=== PATIENT | male | born 1995 | race Caucasian/White ===

== ENCOUNTER 2020-12-20 12:32 | Inpatient (IN) ==
--- NOTE | 2020-12-20 15:35 | XRay Report ---
XR chest 1V portable HISTORY: Shortness of breath. Covid positive. COMPARISON: None. FINDINGS: No pneumothorax. No pleural effusions. There are low lung volumes. The cardiac silhouette i s mildly enlarged. There are patchy airspace opacities within the left lower lung zone. IMPRESSION: 1. Patchy airspace opacities within the left lower lung zone. This likely represents a viral pneumoni a. 2. Mild enlargement of the cardiac silhouette. This could be accentuated by the low lung volumes. ACT 112: Negative or not required by law. Electronically signed by: Mark Naranjo M.D. 12/20/2020 3:34 PM
--- NOTE | 2020-12-20 16:23 | Emergency Department Note ---
History of Present Illness General Chief complaint: Shortness of Breath/Dyspnea Stated complaint: COVID POSITIVE,TROUBLE BREATHING,SOME CHEST PAIN Time Seen by Provider: 12/20/20 15:05 History of Present Illness 24-year-old male who presents to the emergency department for evaluation of difficulty breathing, chest pain and low oxygen level. The patient reports that he was diagnosed with COVID-19 a little over a week ago. His testing was performed and [place]. The patient reports that he was exposed to his stepdaughter who tested positive for COVID-19 one week before his diagnosis. The patient reports that over the past 2 days, his breathing has become more labored. His purchased a pulse oximeter this morning, and the patient found his O2 saturation level at 85%. He did not tried to measure his saturation with activity. The patient denies any pain at the time of my exam. Home Medications Medication Instructions Recorded Confirmed Type No Known Home Medications 12/20/20 12/20/20 History Allergies Allergy/AdvReac Type Severity Reaction Status Date / Time No Known Allergies Allergy Unverified 12/20/20 16:22 Past Med/Surg History Medical History No pertinent past medical history Surgical History No pertinent past surgical history Family History Other No family history of cardiac disease No family history of diabetes mellitus Social History Smoking Status: Former smoker Hx Alcohol Use: Yes Alcohol type: beer Alcohol Intake Frequency: Monthly or Less Hx Substance Use: No Preferred Language: [place] Hat Blocker Required: No Beliefs That Will Affect Care: None Current Living Situation: Spouse Other Information That Helps Us Care for You: No Feels Safe at Home: Yes Safety Concerns: Feels Safe At This Time Assistive Devices: Glasses Review of Systems 10 system review was performed and was negative except for pertinent positives and negatives as indicated in history of present illness Physical Exam Vital Signs Vital Signs - 24 hr 12/20/20 12:43 12/20/20 15:10 12/20/20 15:20 Temperature 37.5 C Temperature Source Temporal Artery Scan Pulse Rate 90 75 Pulse Rate [Left Finger] 76 Pulse Rate from SpO2 Sensor 75 Pulse Rhythm [Left Finger] Regular Pulse Strength [Left Finger] Normal Respiratory Rate 22 18 23 Respiratory Effort / Characteristics Non-Labored Non-Labored Respiratory Depth Normal Normal Respiratory Pattern Regular Blood Pressure 153/80 H Blood Pressure [Left Arm] 130/68 Blood Pressure Mean 104 Blood Pressure Mean [Left Arm] 88 Blood Pressure Position [Left Arm] Lying Pulse Oximetry 88 L 92 92 Oxygen Delivery Method Room Air Nasal Cannula Oxygen Flow Rate 4 Sepsis Recent Fever Within 48 Hours Yes Sepsis New/Unexplained Change in Mental Status No Sepsis Action Taken by Nursing No Action Required 12/20/20 15:30 12/20/20 16:00 12/20/20 16:30 Temperature Temperature Source Pulse Rate 81 76 76 Pulse Rate [Left Finger] Pulse Rate from SpO2 Sensor 81 76 Pulse Rhythm [Left Finger] Pulse Strength [Left Finger] Respiratory Rate 20 24 24 Respiratory Effort / Characteristics Respiratory Depth Respiratory Pattern Blood Pressure Blood Pressure [Left Arm] Blood Pressure Mean Blood Pressure Mean [Left Arm] Blood Pressure Position [Left Arm] Pulse Oximetry 92 92 Oxygen Delivery Method Oxygen Flow Rate Sepsis Recent Fever Within 48 Hours Sepsis New/Unexplained Change in Mental Status Sepsis Action Taken by Nursing 12/20/20 17:00 12/20/20 17:30 12/20/20 18:00 Temperature Temperature Source Pulse Rate 73 75 74 Pulse Rate [Left Finger] 75 Pulse Rate from SpO2 Sensor 72 75 76 Pulse Rhythm [Left Finger] Regular Pulse Strength [Left Finger] Normal Respiratory Rate 23 24 26 H Respiratory Effort / Characteristics Spontaneous Respiratory Depth Shallow Respiratory Pattern Regular Blood Pressure Blood Pressure [Left Arm] 111/61 Blood Pressure Mean Blood Pressure Mean [Left Arm] 77 Blood Pressure Position [Left Arm] Lying Pulse Oximetry 93 91 93 Oxygen Delivery Method Nasal Cannula Oxygen Flow Rate 4 Sepsis Recent Fever Within 48 Hours Sepsis New/Unexplained Change in Mental Status Sepsis Action Taken by Nursing 12/20/20 18:30 12/20/20 19:00 12/20/20 19:30 Temperature Temperature Source Pulse Rate 79 72 85 Pulse Rate [Left Finger] Pulse Rate from SpO2 Sensor 80 73 86 Pulse Rhythm [Left Finger] Pulse Strength [Left Finger] Respiratory Rate 30 H 23 19 Respiratory Effort / Characteristics Respiratory Depth Respiratory Pattern Blood Pressure 122/67 Blood Pressure [Left Arm] Blood Pressure Mean 85 Blood Pressure Mean [Left Arm] Blood Pressure Position [Left Arm] Pulse Oximetry 93 92 90 Oxygen Delivery Method Nasal Cannula Oxygen Flow Rate 2 Sepsis Recent Fever Within 48 Hours Sepsis New/Unexplained Change in Mental Status Sepsis Action Taken by Nursing 12/20/20 20:00 12/20/20 20:30 12/20/20 21:00 Temperature Temperature Source Pulse Rate 77 77 76 Pulse Rate [Left Finger] Pulse Rate from SpO2 Sensor 76 77 78 Pulse Rhythm [Left Finger] Pulse Strength [Left Finger] Respiratory Rate 32 H 23 27 H Respiratory Effort / Characteristics Respiratory Depth Respiratory Pattern Blood Pressure Blood Pressure [Left Arm] Blood Pressure Mean Blood Pressure Mean [Left Arm] Blood Pressure Position [Left Arm] Pulse Oximetry 92 90 90 Oxygen Delivery Method Nasal Cannula Nasal Cannula Nasal Cannula Oxygen Flow Rate 4 4 4 Sepsis Recent Fever Within 48 Hours Sepsis New/Unexplained Change in Mental Status Sepsis Action Taken by Nursing 12/20/20 21:30 12/20/20 23:24 Temperature 37.8 C H Temperature Source Oral Pulse Rate 76 Pulse Rate [Left Finger] 73 Pulse Rate from SpO2 Sensor 76 Pulse Rhythm [Left Finger] Pulse Strength [Left Finger] Respiratory Rate 29 H 22 Respiratory Effort / Characteristics Respiratory Depth Respiratory Pattern Blood Pressure Blood Pressure [Left Arm] 124/79 Blood Pressure Mean Blood Pressure Mean [Left Arm] 94 Blood Pressure Position [Left Arm] Lying Pulse Oximetry 90 92 Oxygen Delivery Method Nasal Cannula Nasal Cannula Oxygen Flow Rate 4 4 Sepsis Recent Fever Within 48 Hours Sepsis New/Unexplained Change in Mental Status Sepsis Action Taken by Nursing CONSTITUTIONAL: Healthy and well nourished. Patient does not appear in any acu te distress, nor does he appear toxic. HEENT: Normocephalic, atraumatic. Pupils equal, round and reactive. Ears and nares are clear. No subconjunctival hemorrhage or rhinorrhea. Examination the oropharynx shows minimal posterior pharyngeal erythema without tonsillar hypertrophy or exudates. NECK: Full active range of motion without discomfort. LYMPHATICS: No cervical chain adenopathy. RESPIRATORY: Patient has mild decrease of breath sounds within the left lung base, otherwise no wheezing, crackles, rhonchi or stridor. CARDIOVASCULAR: Regular rate and rhythm with no murmurs, rubs or gallops. GASTROINTESTINAL: Bowel sounds present in all quadrants. Soft and nontender to palpation. MUSCULOSKELETAL: Full range of motion of all joints without discomfort. INTEGUMENTARY: No rash or other significant dermatologic conditions noted. HEMATOLOGIC: No ecchymosis or petechiae. PSYCHIATRIC: Positive affect. NEUROLOGIC: No focal neurologic deficits noted. Course Course Patient history and physical exam were performed. Nurses notes were reviewed. Vital signs were reviewed, showing an O2 saturation of 88% on room air, and elevated blood pressure 153/80. The patient is afebrile with a temperature of 37.5 C, and heart rate of 90. Given the high suspicion that the patient would require admission, I did recommend checking additional baseline labs and performing an ECG and chest x-ray. The patient was in agreement. IV access was established, and labs were drawn. Review of labs shows a mild leukopenia with an elevated sed rate and CRP. The patient is also mildly hyponatremic, hyperglycemic and with an elevated AST of 62. Urinalysis shows 2+ proteinuria and trace ketonuria with 1+ hematuria. A confirmatory COVID-19 PCR test was performed and was positive. A portable chest x-ray shows a left basilar pneumonia. An ECG was performed and was normal. Troponin was also normal. Findings were discussed with the patient. I did recommend hospitalist consultation. The case was further discussed with the [facility] hospitalist service, who has agreed to admission. Please see their dictation for further treatment and final disposition. Administered Medications Discontinued Medications Albuterol (Albuterol Hfa 8 Gm Inhaler) 2 puffs INH NOW ONE Stop: 12/20/20 19:36 Last Admin: 12/20/20 19:58 Dose: 2 puffs Documented by: [id number] Dexamethasone (Dexamethasone Sod Inj 4 Mg/Ml Vial) Confirm Administered Dose 8 mg .ROUTE .STK-MED ONE Stop: 12/20/20 19:22 Last Admin: 12/20/20 19:25 Dose: Not Given Documented by: [id number] Dexamethasone 6 mg/ Syringe 1.5 mls @ 1 mls/min IV NOW ONE Stop: 12/20/20 18:46 Last Admin: 12/20/20 19:24 Dose: 1 mls/min Documented by: [id number] Remdesivir 200 mg/ Sodium (Chloride) 250 mls @ 125 mls/hr IV ONE STA; Protocol Stop: 12/20/20 23:00 Last Admin: 12/20/20 21:47 Dose: 125 mls/hr Documented by: [id number] Medical Decision Making Medical Records Attestation: I reviewed the patient's medical records. Home Medications Current Medication List: was personally reviewed by ca Laboratory Data Attestation: I reviewed the patient's lab results. Result diagrams: 12/20/20 Unknown 12/20/20 Unknown Lab Results 12/20/20 12/20/20 12/20/20 Range/Units 18:24 18:24 19:20 WBC (4.8-10.8) K/uL RBC (4.7-6.1) M/uL Hgb (14.0-18.0) g/dL Hct (42-52) % MCV (80-100) fL MCH (25-34) pg MCHC (32-36) g/dL RDW Std Deviation (36.4-46.3) fL RDW Coeff of Donna (11.5-14.5) % Plt Count (130-400) K/uL MPV (7.4-10.4) fL Immature Gran % (Auto) % Neut % (Auto) % Lymph % (Auto) % [place] % (Auto) % Eos % (Auto) % Baso % (Auto) % Neut # (Auto) (1.4-6.5) K/uL Lymph # (Auto) (1.2-3.4) K/uL [place] # (Auto) (0.11-0.59) K/uL Eos # (Auto) (0-0.5) K/uL Baso # (Auto) (0-0.2) K/uL Immature Gran # (Auto) (0.00-0.02) K/uL ESR (0-15) mm/hr Sodium (136-145) mmol/L Potassium (3.5-5.1) mmol/L Chloride (98-107) mmol/L Carbon Dioxide (21-32) mmol/L Anion Gap (3-11) BUN (7-18) mg/dl Creatinine (0.6-1.4) mg/dl Est Cr Clr Drug Dosing ml/min Est GFR ( Amer) ml/min Est GFR (Non-Af Amer) ml/min BUN/Creatinine Ratio (10-20) Glucose (70-99) mg/dl Calcium (8.5-10.1) mg/dl Magnesium (1.8-2.4) mg/dl Total Bilirubin (0.2-1) mg/dl AST (15-37) U/L ALT (12-78) U/L Alkaline Phosphatase (45-117) U/L Troponin I (0-0.045) ng/ml C-Reactive Protein (0-0.29) mg/dl Total Protein (6.4-8.2) gm/dl Albumin (3.4-5.0) gm/dl Globulin (2.5-4.0) gm/dl Albumin/Globulin Ratio (0.9-2) Urine Color Dark Yellow Urine Appearance Clear (Clear) Urine pH 5.5 (4.5-7.5) Ur Specific [place] 1.027 (1.000-1.030) Urine Protein 2+ H (Negative) Urine Glucose (UA) Negative (Negative) Urine Ketones Trace H (Negative) Urine Blood 1+ H (Negative) Urine Nitrite Negative (Negative) Urine Bilirubin Negative (Negative) Urine Urobilinogen Negative (Negative) Ur Leukocyte Esterase Negative (Negative) Urine WBC (Auto) 1-5 (0-5) /hpf Urine RBC (Auto) 5-10 H (0-4) /hpf U Hyaline Cast (Auto) 1-5 (0-5) /lpf U Epithel Cells (Auto) 20-30 H (0-5) /lpf Urine Bacteria (Auto) Negative (Negative) COVID-19 Eval Order Covid19 at [facility] SARS-CoV-2 (PCR) POSITIVE A* (Negative) 12/20/20 12/20/20 12/20/20 Range/Units Unknown Unknown Unknown WBC 3.02 L (4.8-10.8) K/uL RBC 5.65 (4.7-6.1) M/uL Hgb 16.1 (14.0-18.0) g/dL Hct 47.2 (42-52) % MCV 83.5 (80-100) fL MCH 28.5 (25-34) pg MCHC 34.1 (32-36) g/dL RDW Std Deviation 42.5 (36.4-46.3) fL RDW Coeff of Donna 13.9 (11.5-14.5) % Plt Count 192 (130-400) K/uL MPV 11.0 H (7.4-10.4) fL Immature Gran % (Auto) 0.3 % Neut % (Auto) 70.9 % Lymph % (Auto) 22.5 % [place] % (Auto) 6.0 % Eos % (Auto) 0.0 % Baso % (Auto) 0.3 % Neut # (Auto) 2.14 (1.4-6.5) K/uL Lymph # (Auto) 0.68 L (1.2-3.4) K/uL [place] # (Auto) 0.18 (0.11-0.59) K/uL Eos # (Auto) 0.00 (0-0.5) K/uL Baso # (Auto) 0.01 (0-0.2) K/uL Immature Gran # (Auto) 0.01 (0.00-0.02) K/uL ESR 19 H (0-15) mm/hr Sodium 135 L (136-145) mmol/L Potassium 3.9 (3.5-5.1) mmol/L Chloride 106 (98-107) mmol/L Carbon Dioxide 21 (21-32) mmol/L Anion Gap 8.0 (3-11) BUN 13 (7-18) mg/dl Creatinine 1.10 (0.6-1.4) mg/dl Est Cr Clr Drug Dosing 170.1 ml/min Est GFR ( Amer) 106.8 ml/min Est GFR (Non-Af Amer) 92.2 ml/min BUN/Creatinine Ratio 12.1 (10-20) Glucose 105 H (70-99) mg/dl Calcium 8.7 (8.5-10.1) mg/dl Magnesium 2.0 (1.8-2.4) mg/dl Total Bilirubin 0.4 (0.2-1) mg/dl AST 62 H (15-37) U/L ALT 62 (12-78) U/L Alkaline Phosphatase 55 (45-117) U/L Troponin I < 0.015 (0-0.045) ng/ml C-Reactive Protein 0.81 H (0-0.29) mg/dl Total Protein 7.7 (6.4-8.2) gm/dl Albumin 3.5 (3.4-5.0) gm/dl Globulin 4.2 H (2.5-4.0) gm/dl Albumin/Globulin Ratio 0.8 L (0.9-2) Urine Color Urine Appearance (Clear) Urine pH (4.5-7.5) Ur Specific [place] (1.000-1.030) Urine Protein (Negative) Urine Glucose (UA) (Negative) Urine Ketones (Negative) Urine Blood (Negative) Urine Nitrite (Negative) Urine Bilirubin (Negative) Urine Urobilinogen (Negative) Ur Leukocyte Esterase (Negative) Urine WBC (Auto) (0-5) /hpf Urine RBC (Auto) (0-4) /hpf U Hyaline Cast (Auto) (0-5) /lpf U Epithel Cells (Auto) (0-5) /lpf Urine Bacteria (Auto) (Negative) COVID-19 Eval Order SARS-CoV-2 (PCR) (Negative) Imaging Data Attestation: I personally reviewed and interpreted this imaging study as follows: My Impression: My interpretation of reportable chest x-ray shows airspace opacities within the left lower lung base. No pneumothorax noted. Radiologist report was also reviewed. Radiologist's Impression: Chest X-Ray 12/20/20 15:08 XR chest 1V portable HISTORY: Shortness of breath. Covid positive. COMPARISON: None. FINDINGS: No pneumothorax. No pleural effusions. There are low lung volumes. The cardiac silhouette is mildly enlarged. There are patchy airspace opacities within the left lower lung zone. IMPRESSION: 1. Patchy airspace opacities within the left lower lung zone. This likely represents a viral pneumonia. 2. Mild enlargement of the cardiac silhouette. This could be accentuated by the low lung volumes. ACT 112: Negative or not required by law. Electronically signed by: Mark Naranjo M.D. 12/20/2020 3:34 PM ECG Data Attestation: I personally reviewed and interpreted this ECG as follows: Indication: + SOB/dyspnea and + other (Positive COVID-19 infection) Rate (beats per minute): 79 Rhythm: + normal sinus ECG Intervals/blocks: + Normal QRS, + Normal QT and + Normal [place] ECG [place]: + Normal ECG ST segments: + Normal ST segments Comparison ECG Date: no prior available Blood Pressure Blood Pressure Findings: Normal blood pressure MDM Narrative Patient presents the emergency department with complaint of shortness of breath and difficulty breathing. The patient is positive for COVID-19. His O2 saturation at home was 85%, and less than 90% upon triage. The patient was placed on O2 via nasal cannula at 4 L/min, and sustained his pulse ox around 92%. Additional work-up today is not suggestive of other acute cardiac etiology, having a normal ECG and troponin. Chest x-ray does show evidence for pneumonia. Given the patient's proxy, I do feel that he warrants admission. Impression & Plan Pneumonia due to COVID-19 virus, Acute respiratory failure with hypoxia Discharge Plan Visit Data Chief Complaint: Shortness of Breath/Dyspnea Stated Complaint: COVID POSITIVE,TROUBLE BREATHING,SOME CHEST PAIN ED Provider: Mack Cardenas ED Midlevel Provider: Andrés Kowalski Discharge Problem: Pneumonia due to COVID-19 virus, Acute respiratory failure with hypoxia Discharge Instructions Interventions: ED Discharge Assessment Last Done: 12/20/20 22:51 Forms Stand Alone Forms: [employer] Prescriptions Prescriptions: No Action No Known Home Medications RF: 0 Referrals Referrals: PCP,NO [Primary Care Provider] -
[2020-12-20 16:27] LABS: Basophils # (auto) 0.01 K/uL (0-0.2); Basophils % (auto) 0.3 %; Hematocrit (blood only) 47.2 % (42-52); Hemoglobin 16.1 g/dL (14.0-18.0); Immature Granulocytes # (auto) 0.01 K/uL (0.00-0.02); Immature Granulocytes % (auto) 0.3 %; Lymphocytes # (auto) 0.68 K/uL (1.2-3.4); Lymphocytes % (auto) 22.5 %; Mean Corpuscular Hemoglobin 28.5 pg (25-34); Mean Corpuscular Hgb Conc 34.1 g/dL (32-36); Mean Corpuscular Volume 83.5 fL (80-100); Monocytes # (auto) 0.18 K/uL (0.11-0.59); Neutrophils # (auto) 2.14 K/uL (1.4-6.5); Neutrophils % (auto) 70.9 %; Platelet Count 192 K/uL (130-400); RDW Coefficient of Variation 13.9 % (11.5-14.5); RDW Standard Deviation 42.5 fL (36.4-46.3); Red Blood Count 5.65 M/uL (4.7-6.1); White Blood Count 3.02 K/uL (4.8-10.8)
[2020-12-20 16:44] LABS: Alanine Aminotransferase 62 U/L (12-78); Albumin Level 3.5 gm/dl (3.4-5.0); Aspartate Aminotransferase 62 U/L (15-37); BUN Creatinine Ratio 12.1 (10-20); Blood Urea Nitrogen 13 mg/dl (7-18); C Reactive Protein 0.81 mg/dl (0-0.29); Calcium 8.7 mg/dl (8.5-10.1); Carbon Dioxide 21 mmol/L (21-32); Chloride 106 mmol/L (98-107); Creatinine Clr Calc Pharmacy 170.1 ml/min; Est GFR (African American) 106.8 ml/min; Est GFR (Non-African American) 92.2 ml/min; Glucose 105 mg/dl (70-99); Potassium 3.9 mmol/L (3.5-5.1); Sodium 135 mmol/L (136-145)
[2020-12-20 16:49] LABS: Albumin Globulin Ratio 0.8 (0.9-2); Alkaline Phosphatase 55 U/L (45-117); Bilirubin,Total 0.4 mg/dl (0.2-1); Globulin 4.2 gm/dl (2.5-4.0); Total Protein 7.7 gm/dl (6.4-8.2); Troponin I < 0.015 ng/ml (0-0.045)
--- NOTE | 2020-12-20 18:12 | History & Physical Report ---
Date of Service December 20, 2020 Assessment & Plan (1) Acute respiratory failure with hypoxia: (2) Pneumonia due to COVID-19 virus: Plan: This is a 24yo M with a PMH of no known past medical history who presents with hypoxia in the setting of covid 19 pneumonia. Patient first developed symptoms 10 days ago, covid + test 12/13 Hypoxic at 85% on room air, improved to 94% on 4L [place] O2 ESR 19, CRP 0.81 CXR with patchy airspace opacities within the left lower lung zone. This likely represents a viral pneumonia Given 6mg IV dexamethasone in ED Please see Dr. Jorgensen's addendum for plan. History of Present Illness Chief Complaint: dyspnea, covid + Primary Care Provider: NO PCP This is a 24yo M with a PMH of no known past medical history who presents with difficulty breathing in the setting of covid 19 infection. Patient first developed symptoms 10 days ago. Stepdaughter was diagnosed with covid a few wee ks ago. Patient first developed fever and chills followed by cough, pleuritic chest pain and difficulty breathing significantly worsened over the past 2 days. purchased pulse ox for patient to use at home and was found to have oxygen saturation of 85%. Came to the ED for further evaluation. Currently saturating at 94% on 4 L nasal cannula. Denies any current fever, chills, lightheadedness, chest pain, wheezing, nausea, vomiting, abdominal pain, dysuria, diarrhea constipation. Still has ability to taste and smell. Denies any change to appetite. Not taking any home medications. Did not receive COVID-19 vaccination. Allergies Allergy/AdvReac Type Severity Reaction Status Date / Time No Known Allergies Allergy Unverified 12/20/20 16:22 Home Medications Medication Instructions Recorded Confirmed Type No Known Home Medications 12/20/20 12/20/20 History Past Med/Surg History Medical History No pertinent past medical history Surgical History No pertinent past surgical history Family History Other No family history of cardiac disease No family history of diabetes mellitus Social History Smoking Status: Former smoker Hx Alcohol Use: Yes Alcohol type: beer Alcohol Intake Frequency: Monthly or Less Hx Substance Use: No Preferred Language: Bulgarian [employer] Required: No Beliefs That Will Affect Care: None Current Living Situation: Spouse Other Information That Helps Us Care for You: No Feels Safe at Home: Yes Safety Concerns: Feels Safe At This Time Assistive Devices: Glasses Review of Systems Review of Systems: At least ten systems reviewed and negative except as noted in the HPI. Physical Exam Physical Exam: Please see Dr. Jorgensen's addendum for physical exam. Results & Data [facility] Vital Signs (Past 12 Hours) Vital Signs Temp Pulse Pulse Resp BP BP Pulse Ox 12/20/20 17:00 75 20 111/61 93 12/20/20 15:10 76 18 130/68 92 12/20/20 12:43 37.5 C 90 22 153/80 H 88 L Laboratory Results Short CBC 12/20/20 Range/Units Unknown WBC 3.02 L (4.8-10.8) K/uL Hgb 16.1 (14.0-18.0) g/dL Hct 47.2 (42-52) % Plt Count 192 (130-400) K/uL BMP 12/20/20 Unknown Sodium 135 L Potassium 3.9 Chloride 106 Carbon Dioxide 21 BUN 13 Creatinine 1.10 Glucose 105 H Calcium 8.7 Cardiac Enzymes 12/20/20 Range/Units Unknown Troponin I < 0.015 (0-0.045) ng/ml Liver Function 12/20/20 Range/Units Unknown Total Bilirubin 0.4 (0.2-1) mg/dl AST 62 H (15-37) U/L ALT 62 (12-78) U/L Alkaline Phosphatase 55 (45-117) U/L Albumin 3.5 (3.4-5.0) gm/dl Diagnostic Findings Chest X-Ray 12/20/20 15:08 XR chest 1V portable HISTORY: Shortness of breath. Covid positive. COMPARISON: None. FINDINGS: No pneumothorax. No pleural effusions. There are low lung volumes. The cardiac silhouette is mildly enlarged. There are patchy airspace opacities within the left lower lung zone. IMPRESSION: 1. Patchy airspace opacities within the left lower lung zone. This likely represents a viral pneumonia. 2. Mild enlargement of the cardiac silhouette. This could be accentuated by the low lung volumes. ACT 112: Negative or not required by law. Electronically signed by: Mark Naranjo M.D. 12/20/2020 3:34 PM Supervising Physician Co-Signing Physician Notes IM ATTENDING : Patient seen and examined. History obtained from patient and records. Preceding documentation by Ms. Kimberly Medel PA-C reviewed. FINAL ASSESSMENT AND PLAN as follows : Acute hypoxemic respiratory failure Secondary to severe COVID-19 pneumonia NAFLD as per records Mood disorder, stable off maintenance medications Past tobacco abuse Medical telemetry Supplemental O2 Decadron and Remdesivir for severe COVID-19 pneumonia. (Patient was counseled regarding potential adverse effects from Remdesivir therapy and provided with patient education sheet.) Pulmonary consult if without improvement. DVT prophylaxis per Lovenox subcu Full code Text document was generated using [employer] voice recognition software. It may contain grammatical or spelling errors. Kindly contact undersigned for clarification of any documentation item in question.
[2020-12-20] MEDS ORDERED: dexAMETHasone 6 MG in SYRINGE 0 ML IV ONE (18:45)
[2020-12-20] MEDS ORDERED: DEXAMETHASONE SOD INJ 4 MG/ML VIAL ONE (19:21)
[2020-12-20] MEDS ORDERED: ALBUTEROL HFA 8 GM INHALER INH ONE (19:35)
[2020-12-20 20:16] LABS: Appearance Urine Clear (Clear); Bacteria Urine Automated Negative (Negative); Bilirubin Urine Negative (Negative); Blood Urine 1+ (Negative); Color Urine Dark Yellow; Epithelial Cell Urine Auto 20-30 /lpf (0-5); Glucose Urine UA Negative (Negative); Ketones Urine Trace (Negative); Leukocyte Esterase Urine Negative (Negative); Nitrite Urine Negative (Negative); Protein Urine 2+ (Negative); Specific Gravity Urine 1.027 (1.000-1.030); Urobilinogen Urine Negative (Negative); pH Urine 5.5 (4.5-7.5)
[2020-12-20] MEDS ORDERED: NSS + 20MEQ KCL 20 MEQ/1,000 ML BAG IV ONE (20:17)
[2020-12-20] MEDS ORDERED: REMDESIVIR 200 MG in SODIUM CHLORIDE 0.9% 210 ML IV STA (21:01)
[2020-12-20] MEDS ORDERED: ACETAMINOPHEN 325 MG TAB PO PRN (23:50)
[2020-12-20] MEDS ORDERED: PROMETHAZINE HCL 12.5 MG in SODIUM CHLORIDE 0.9% 50 ML IV PRN (23:50)
[2020-12-20] MEDS ORDERED: ALBUTEROL HFA 8 GM INHALER INH PRN (23:50)
[2020-12-21] MEDS: SODIUM CHLORIDE 0.9% 10ML FLUSH IV SCH ×2 (00:09→22:26)
[2020-12-21 07:51] LABS: Basophils # (auto) 0.01 K/uL (0-0.2); Basophils % (auto) 0.5 %; Hematocrit (blood only) 46.8 % (42-52); Hemoglobin 15.8 g/dL (14.0-18.0); Lymphocytes # (auto) 0.87 K/uL (1.2-3.4); Lymphocytes % (auto) 39.4 %; Mean Corpuscular Hemoglobin 28.5 pg (25-34); Mean Corpuscular Hgb Conc 33.8 g/dL (32-36); Mean Corpuscular Volume 84.3 fL (80-100); Mean Platelet Volume 11.5 fL (7.4-10.4); Monocytes # (auto) 0.27 K/uL (0.11-0.59); Monocytes % (auto) 12.2 %; Neutrophils # (auto) 1.06 K/uL (1.4-6.5); Neutrophils % (auto) 47.9 %; Platelet Count 188 K/uL (130-400); RDW Coefficient of Variation 13.8 % (11.5-14.5); RDW Standard Deviation 42.9 fL (36.4-46.3); Red Blood Count 5.55 M/uL (4.7-6.1); White Blood Count 2.21 K/uL (4.8-10.8)
[2020-12-21 08:24] LABS: Albumin Level 3.1 gm/dl (3.4-5.0); C Reactive Protein 0.99 mg/dl (0-0.29); Calcium 8.7 mg/dl (8.5-10.1); Creatinine Clr Calc Pharmacy 187.5 ml/min; Potassium 4.3 mmol/L (3.5-5.1)
[2020-12-21 08:27] LABS: Albumin Globulin Ratio 0.8 (0.9-2); Bilirubin,Total 0.5 mg/dl (0.2-1); Total Protein 7.1 gm/dl (6.4-8.2)
[2020-12-21] MEDS: dexAMETHasone 6 MG in SYRINGE 0 ML IV SCH (08:44)
[2020-12-21] MEDS ORDERED: dexAMETHasone 6 MG in SYRINGE 0 ML IV SCH (09:00)
[2020-12-21] MEDS: REMDESIVIR 100 MG in SODIUM CHLORIDE 0.9% 230 ML IV SCH (21:03)
--- NOTE | 2020-12-21 23:27 | Hospitalist Progress Note ---
Date of Service December 21, 2020 Assessment & Plan (1) Acute respiratory failure with hypoxia: (2) Pneumonia due to COVID-19 virus: Plan: This is a 24yo M with a PMH of no known past medical history who presents with worsening shortness of breath and hypoxia due to covid 19 pneumonia. Patient first developed symptoms 10 days ago and testing positive for covid 19 on 12/13 Did not receive the Covid 19 vaccine CXR showed patchy airspace opacities within the left lower lung zone. This likely represents a viral pneumonia Hypoxia on admission with oxygen level 85% on room air that improved to 94% on 4 L nasal cannula ESR 19, CRP 0.81on admission CXR with patchy airspace opacities within the left lower lung zone. This likely represents a viral pneumonia Continue IV dexamethasone 6 mg daily and remdesivir We will continue monitor liver enzymes while on IV remdesivir We will monitor and flat inflammatory markers such as ESR, C-reactive protein, ferritin Currently require 15 L oxygen supplement Continue guaifenesin and incentive spirometry Patient was advised to continue with proning Morbid obesity BMI 46.1 Counseling on weight loss with diet and exercise DVT prophylaxis will do Lovenox Full code Admission and Anticipated Discharge Date Admission Date: December 20, 2020 Subjective Patient was seen and examined for follow-up of shortness of breath due to COVID- 19 pneumonia Lying in bed with mild respiratory distress Currently on 15L oxygen supplement Denies any chest pain, palpitation, dizziness, and fever. Review of Systems Review of Systems: All systems reviewed & are unremarkable except as noted in Subjective Physical Exam Physical Exam: General- No acute distress, obese Head- atraumatic Eyes- PERRL, EOMI, ENT- oropharynx clear Neck- supple, no JVD Lungs- +diminished breath sounds Heart- regular rhythm; no murmur Abdomen- normal bowel sounds, soft, nontender Extremities- no calf tenderness Neuro- alert, oriented x 3; PERRL, EOMI; no facial palsy; no dysarthria Skin- warm & dry Results & Data Results & Data ([facility]) Vital Signs (Past 12 Hours) Vital Signs Temp Pulse Pulse Resp BP Pulse Ox 12/21/20 23:11 36.9 C 70 26 H 116/72 93 12/21/20 23:08 75 23 95 12/21/20 19:16 37.1 C 66 26 H 138/70 92 12/21/20 15:30 36.8 C 62 19 106/60 94 12/21/20 11:40 36.9 C 67 20 138/72 92
[2020-12-22] MEDS ORDERED: BENZONATATE 100 MG CAPSULE PO PRN (04:47)
[2020-12-22] MEDS ORDERED: BENZONATATE 100 MG CAPSULE ONE (04:55)
[2020-12-22] MEDS: guaiFENesin 600 MG TABCR PO SCH ×2 (08:32→21:19)
[2020-12-22] MEDS: dexAMETHasone 6 MG in SYRINGE 0 ML IV SCH (08:32)
[2020-12-22 09:36] LABS: C Reactive Protein 0.7 mg/dl (0-0.29); Ferritin 540.2 ng/ml (8-388)
--- NOTE | 2020-12-22 11:57 | Electrocardiogram Report ---
Test Reason : Blood Pressure : / mmHG Vent. Rate : 079 BPM Atrial Rate : 079 BPM P-R Int : 188 ms QRS Dur : 106 ms QT Int : 380 ms P-R-T Axes : 016 002 014 degrees QTc Int : 435 ms Normal sinus rhythm Normal ECG No previous ECGs available Confirmed by Rocky Mcneil ([id number]) on 12/22/2020 11:57:34 AM Referred By: REFERRED SELF Confirmed By:Rocky Mcneil
--- NOTE | 2020-12-22 19:18 | Hospitalist Progress Note ---
Date of Service December 22, 2020 Assessment & Plan (1) Acute respiratory failure with hypoxia: (2) Pneumonia due to COVID-19 virus: Plan: This is a 24yo M with a PMH of no known past medical history who presents with worsening shortness of breath and hypoxia due to covid 19 pneumonia. Patient first developed symptoms 10 days ago and testing positive for covid 19 on 12/13 Did not receive the Covid 19 vaccine CXR showed patchy airspace opacities within the left lower lung zone. This likely represents a viral pneumonia Hypoxia on admission with oxygen level 85% on room air that improved to 94% on 4 L nasal cannula ESR 19, CRP 0.81on admission CXR with patchy airspace opacities within the left lower lung zone. This likely represents a viral pneumonia Continue IV dexamethasone 6 mg daily and remdesivir We will continue monitor liver enzymes while on IV remdesivir We will monitor and flat inflammatory markers such as ESR, C-reactive protein, ferritin Currently require 15 L oxygen supplement Will consider to give low-dose Lasix 20 mg x 1 Continue guaifenesin and incentive spirometry Patient was advised to continue with proning Morbid obesity BMI 46.1 Counseling on weight loss with diet and exercise DVT prophylaxis will do Lovenox Full code Admission and Anticipated Discharge Date Admission Date: December 20, 2020 Subjective Patient was seen and examined for follow-up of shortness of breath due to COVID- 19 pneumonia Lying in bed with no acute respiratory distress Continue requiring 15L oxygen supplement Denies any chest pain, palpitation, dizziness, and fever. Review of Systems Review of Systems: All systems reviewed & are unremarkable except as noted in Subjective Physical Exam Physical Exam: General- No acute distress, obese Head- atraumatic Eyes- PERRL, EOMI, ENT- oropharynx clear Neck- supple, no JVD Lungs- +diminished breath sounds Heart- regular rhythm; no murmur Abdomen- normal bowel sounds, soft, nontender Extremities- no calf tenderness Neuro- alert, oriented x 3; PERRL, EOMI; no facial palsy; no dysarthria Skin- warm & dry Results & Data Results & Data ([facility]) Vital Signs (Past 12 Hours) Vital Signs Temp Pulse Pulse Resp BP Pulse Ox 12/22/20 19:05 36.9 C 73 20 124/72 93 12/22/20 16:00 73 12/22/20 15:44 36.7 C 71 18 118/71 91 12/22/20 10:19 95 12/22/20 10:10 37.2 C 71 18 133/70 88 L 12/22/20 08:00 73 12/22/20 07:21 36.8 C 77 18 155/82 H 90
[2020-12-22] MEDS ORDERED: MELATONIN 3 MG TAB PO PRN (20:53)
[2020-12-22] MEDS: REMDESIVIR 100 MG in SODIUM CHLORIDE 0.9% 230 ML IV SCH (21:18)
[2020-12-22] MEDS: SODIUM CHLORIDE 0.9% 10ML FLUSH IV SCH (22:25)
[2020-12-23 08:36] LABS: Albumin Globulin Ratio 0.8 (0.9-2); BUN Creatinine Ratio 14.5 (10-20); Bilirubin,Total 0.7 mg/dl (0.2-1); C Reactive Protein 1.45 mg/dl (0-0.29); Calcium 8.1 mg/dl (8.5-10.1); Creatinine Clr Calc Pharmacy 199.3 ml/min; Est GFR (African American) 126.6 ml/min; Est GFR (Non-African American) 109.3 ml/min; Ferritin 568.5 ng/ml (8-388); Globulin 3.9 gm/dl (2.5-4.0); Potassium 3.5 mmol/L (3.5-5.1); Total Protein 6.9 gm/dl (6.4-8.2)
[2020-12-23] MEDS: guaiFENesin 600 MG TABCR PO SCH ×2 (08:41→21:29)
[2020-12-23] MEDS: ENOXAPARIN INJ 40 MG/0.4 ML SYR SQ SCH (08:41)
[2020-12-23] MEDS: dexAMETHasone 6 MG in SYRINGE 0 ML IV SCH (08:41)
[2020-12-23] MEDS ORDERED: POTASSIUM CHLORIDE CRTAB 20 MEQ TABCR PO STA (09:28)
[2020-12-23] MEDS ORDERED: FUROSEMIDE 20 MG in SYRINGE 0 ML IV ONE (09:28)
[2020-12-23] MEDS ORDERED: FUROSEMIDE 40 MG/4 ML VIAL IV ONE (10:00)
[2020-12-23] MEDS: REMDESIVIR 100 MG in SODIUM CHLORIDE 0.9% 230 ML IV SCH (20:21)
--- NOTE | 2020-12-23 20:54 | Hospitalist Progress Note ---
Date of Service December 23, 2020 Assessment & Plan (1) Acute respiratory failure with hypoxia: (2) Pneumonia due to COVID-19 virus: Plan: This is a 24yo M with a PMH of no known past medical history who presents with worsening shortness of breath and hypoxia due to covid 19 pneumonia. Patient first developed symptoms 10 days ago and testing positive for covid 19 on 12/13 Did not receive the Covid 19 vaccine CXR showed patchy airspace opacities within the left lower lung zone. This likely represents a viral pneumonia Hypoxia on admission with oxygen level 85% on room air that improved to 94% on 4 L nasal cannula ESR 19, CRP 0.81on admission CXR with patchy airspace opacities within the left lower lung zone. This likely represents a viral pneumonia Continue IV dexamethasone 6 mg daily and remdesivir We will continue monitor liver enzymes while on IV remdesivir inflammatory markers increase with C-reactive protein from 0.72 1.5, ferritin from 540 to 568 Currently require 15 L oxygen supplement Lasix 20 mg x 1 IV given today Continue guaifenesin and incentive spirometry Patient was advised to continue with proning Transaminitis Possible related to the acute illness AST 72 and ALT 80 We will continue monitor LFTs Morbid obesity BMI 46.1 Counseling on weight loss with diet and exercise DVT prophylaxis will do Lovenox Full code Admission and Anticipated Discharge Date Admission Date: December 20, 2020 Subjective Patient was seen and examined for follow-up of shortness of breath due to COVID- 19 pneumonia Sitting in chair with no acute respiratory distress Continue requiring 15L oxygen supplement Lasix 20mg given today and pt said that he has been diuresis well Denies any chest pain, palpitation, dizziness, and fever. Review of Systems Review of Systems: All systems reviewed & are unremarkable except as noted in Subjective Physical Exam Physical Exam: General- No acute distress, obese Head- atraumatic Eyes- PERRL, EOMI, ENT- oropharynx clear Neck- supple, no JVD Lungs- +diminished breath sounds Heart- regular rhythm; no murmur Abdomen- normal bowel sounds, soft, nontender Extremities- no calf tenderness Neuro- alert, oriented x 3; PERRL, EOMI; no facial palsy; no dysarthria Skin- warm & dry Results & Data Results & Data ([facility]) Vital Signs (Past 12 Hours) Vital Signs Temp Pulse Pulse Resp BP Pulse Ox 12/23/20 20:14 37.2 C 70 20 110/69 92 12/23/20 16:00 71 12/23/20 15:35 37.3 C 68 18 121/70 93 12/23/20 11:27 36.5 C 67 20 137/69 90 12/23/20 09:37 70
[2020-12-23] MEDS: SODIUM CHLORIDE 0.9% 10ML FLUSH IV SCH (21:29)
[2020-12-24 07:06] LABS: BUN Creatinine Ratio 16.3 (10-20); C Reactive Protein 1.48 mg/dl (0-0.29); Calcium 8.8 mg/dl (8.5-10.1); Creatinine Clr Calc Pharmacy 214.7 ml/min; Est GFR (African American) 137.1 ml/min; Est GFR (Non-African American) 118.3 ml/min; Potassium 3.6 mmol/L (3.5-5.1)
[2020-12-24 07:11] LABS: Albumin Globulin Ratio 0.7 (0.9-2); Bilirubin,Total 0.7 mg/dl (0.2-1); Ferritin 580.3 ng/ml (8-388); Globulin 4.1 gm/dl (2.5-4.0); Total Protein 7.1 gm/dl (6.4-8.2)
[2020-12-24] MEDS: guaiFENesin 600 MG TABCR PO SCH ×2 (08:58→20:21)
[2020-12-24] MEDS: ENOXAPARIN INJ 40 MG/0.4 ML SYR SQ SCH (08:58)
[2020-12-24] MEDS: dexAMETHasone 6 MG in SYRINGE 0 ML IV SCH (08:58)
[2020-12-24] MEDS ORDERED: FUROSEMIDE 20 MG in SYRINGE 0 ML IV ONE (18:22)
--- NOTE | 2020-12-24 18:22 | Hospitalist Progress Note ---
Date of Service December 24, 2020 Assessment & Plan (1) Acute respiratory failure with hypoxia: (2) Pneumonia due to COVID-19 virus: Plan: This is a 24yo M with a PMH of no known past medical history who presents with worsening shortness of breath and hypoxia due to covid 19 pneumonia. Patient first developed symptoms 10 days ago and testing positive for covid 19 on 12/13 Did not receive the Covid 19 vaccine CXR showed patchy airspace opacities within the left lower lung zone. This likely represents a viral pneumonia Hypoxia on admission with oxygen level 85% on room air that improved to 94% on 4 L nasal cannula ESR 19, CRP 0.81on admission CXR with patchy airspace opacities within the left lower lung zone. This likely represents a viral pneumonia Continue IV dexamethasone 6 mg daily and remdesivir We will continue monitor liver enzymes while on IV remdesivir inflammatory markers increase with C-reactive protein from 0.72 1.5, ferritin from 540 to 568 Lasix 20 mg x 1 IV given yesterday and pt diuresis well Currently on 10 L nasal cannula Continue to wean off oxygen supplement We will consider to give an additional 20 mg Lasix today Continue guaifenesin and incentive spirometry Patient was advised to continue with proning Transaminitis Possible related to the acute illness AST 72 and ALT 80 LFT trending down with AST 58 and ALT 77 Continue monitor LFT Morbid obesity BMI 46.1 Counseling on weight loss with diet and exercise DVT prophylaxis will do Lovenox Full code Admission and Anticipated Discharge Date Admission Date: December 20, 2020 Subjective Patient was seen and examined for follow-up of shortness of breath due to COVID- 19 pneumonia Sitting in chair with no acute respiratory distress watching the Slice Currently he is on 10 L nasal cannula He he was diuresing well with the 20 mg Lasix that was given yesterday He said that he is feeling much better and his coughing less Denies any chest pain, palpitation, dizziness, and fever. Review of Systems Review of Systems: All systems reviewed & are unremarkable except as noted in Subjective Physical Exam Physical Exam: General- No acute distress, obese Head- atraumatic Eyes- PERRL, EOMI, ENT- oropharynx clear Neck- supple, no JVD Lungs- +diminished breath sounds Heart- regular rhythm; no murmur Abdomen- normal bowel sounds, soft, nontender Extremities- no calf tenderness Neuro- alert, oriented x 3; PERRL, EOMI; no facial palsy; no dysarthria Skin- warm & dry Results & Data Results & Data ([facility]) Vital Signs (Past 12 Hours) Vital Signs Temp Pulse Pulse Resp BP Pulse Ox 12/24/20 15:46 36.8 C 70 24 120/71 94 12/24/20 15:16 72 12/24/20 12:13 36.3 C L 66 24 116/69 93 12/24/20 07:55 73 12/24/20 07:14 36.9 C 73 25 H 125/68 90
[2020-12-24] MEDS ORDERED: FUROSEMIDE 40 MG/4 ML VIAL IV STA (18:29)
[2020-12-24] MEDS: REMDESIVIR 100 MG in SODIUM CHLORIDE 0.9% 230 ML IV SCH (20:20)
[2020-12-24] MEDS: SODIUM CHLORIDE 0.9% 10ML FLUSH IV SCH (21:30)
[2020-12-24] MEDS ORDERED: POTASSIUM CHLORIDE CRTAB 20 MEQ TABCR PO STA (21:59)
[2020-12-24] MEDS ORDERED: MAGNESIUM SULFATE / D5W 1 GM/100 ML BAG IV ONE (21:59)
[2020-12-24 22:36] LABS: Magnesium 2.4 mg/dl (1.8-2.4); Thyroid Stimulating Hormone 1.36 uIu/ml (0.300-4.500)
[2020-12-25 06:46] LABS: Albumin Level 3.1 gm/dl (3.4-5.0); BUN Creatinine Ratio 12.7 (10-20); Calcium 9.3 mg/dl (8.5-10.1); Creatinine Clr Calc Pharmacy 172.6 ml/min; Est GFR (African American) 108.4 ml/min; Est GFR (Non-African American) 93.6 ml/min; Potassium 3.9 mmol/L (3.5-5.1)
[2020-12-25 06:49] LABS: Albumin Globulin Ratio 0.7 (0.9-2); Bilirubin,Total 0.7 mg/dl (0.2-1); Globulin 4.4 gm/dl (2.5-4.0); Total Protein 7.5 gm/dl (6.4-8.2)
[2020-12-25] MEDS: guaiFENesin 600 MG TABCR PO SCH ×2 (08:49→20:25)
[2020-12-25] MEDS: dexAMETHasone 6 MG in SYRINGE 0 ML IV SCH (08:49)
[2020-12-25] MEDS: ENOXAPARIN INJ 40 MG/0.4 ML SYR SQ SCH (08:49)
--- NOTE | 2020-12-25 23:40 | Hospitalist Progress Note ---
Date of Service December 25, 2020 Assessment & Plan (1) Acute respiratory failure with hypoxia: (2) Pneumonia due to COVID-19 virus: Plan: This is a 24yo M with a PMH of no known past medical history who presents with worsening shortness of breath and hypoxia due to covid 19 pneumonia. Patient first developed symptoms 10 days ago and testing positive for covid 19 on 12/13 Did not receive the Covid 19 vaccine CXR showed patchy airspace opacities within the left lower lung zone. This likely represents a viral pneumonia Hypoxia on admission with oxygen level 85% on room air that improved to 94% on 4 L nasal cannula ESR 19, CRP 0.81on admission CXR with patchy airspace opacities within the left lower lung zone. This likely represents a viral pneumonia Continue IV dexamethasone 6 mg daily and remdesivir We will continue monitor liver enzymes while on IV remdesivir inflammatory markers increase with C-reactive protein from 0.72 1.5, ferritin from 540 to 568 Lasix 20 mg x 1 IV given yesterday and pt diuresis well Continue to wean off oxygen supplement We will consider to give an additional 20 mg Lasix today Continue guaifenesin and incentive spirometry Patient was advised to continue with proning Patient was weaned off oxygen supplement Currently saturating above 90% on room air We will consider to get a two-step on discharge Continue monitor closely Transaminitis Possible related to the acute illness AST 72 and ALT 80 LFT trending down with AST 58 and ALT 77 Continue monitor LFT Morbid obesity BMI 46.1 Counseling on weight loss with diet and exercise DVT prophylaxis will do Lovenox Full code Disposition Possible discharge tomorrow Admission and Anticipated Discharge Date Admission Date: December 20, 2020 Subjective Patient was seen and examined for follow-up of shortness of breath due to COVID- 19 pneumonia Sitting in chair with no acute respiratory distress watching TV Currently saturating on room air He said that he is feeling much better and his coughing less Denies any chest pain, palpitation, dizziness, and fever. Review of Systems Review of Systems: All systems reviewed & are unremarkable except as noted in Subjective Physical Exam Physical Exam: General- No acute distress, obese Head- atraumatic Eyes- PERRL, EOMI, ENT- oropharynx clear Neck- supple, no JVD Lungs- +diminished breath sounds Heart- regular rhythm; no murmur Abdomen- normal bowel sounds, soft, nontender Extremities- no calf tenderness Neuro- alert, oriented x 3; PERRL, EOMI; no facial palsy; no dysarthria Skin- warm & dry Results & Data Results & Data ([facility]) Vital Signs (Past 12 Hours) Vital Signs Temp Pulse Pulse Resp BP Pulse Ox 12/25/20 23:10 58 L 12/25/20 19:24 37.0 C 74 18 135/82 90 12/25/20 16:49 37.0 C 70 18 168/76 H 92 12/25/20 15:37 74 12/25/20 15:35 95 12/25/20 15:31 96 12/25/20 11:56 36.5 C 65 18 119/73 91
--- NOTE | 2020-12-26 05:48 | Electrocardiogram Report ---
Test Reason : Blood Pressure : / mmHG Vent. Rate : 058 BPM Atrial Rate : 058 BPM P-R Int : 222 ms QRS Dur : 116 ms QT Int : 466 ms P-R-T Axes : 026 016 029 degrees QTc Int : 457 ms Sinus bradycardia with 1st degree A-V block ST elevation, consider early repolarization, pericarditis, or injury When compared with ECG of 20-DEC-2020 16:04, OK interval has increased Confirmed by Amado Peña ([id number]) on 12/26/2020 5:47:51 AM Referred By: REFERRED SELF Confirmed By:Amado Peña
[2020-12-26] MEDS: dexAMETHasone 6 MG in SYRINGE 0 ML IV SCH (08:34)
[2020-12-26] MEDS: guaiFENesin 600 MG TABCR PO SCH (08:35)
[2020-12-26] MEDS: ENOXAPARIN INJ 40 MG/0.4 ML SYR SQ SCH (08:35)
[2020-12-26 10:17] LABS: BUN Creatinine Ratio 13.7 (10-20); Creatinine Clr Calc Pharmacy 204.7 ml/min; Est GFR (African American) 133.4 ml/min; Est GFR (Non-African American) 115.1 ml/min; Potassium 3.4 mmol/L (3.5-5.1)
[2020-12-26 10:19] LABS: Albumin Globulin Ratio 0.7 (0.9-2); Bilirubin,Total 0.6 mg/dl (0.2-1); Globulin 4.1 gm/dl (2.5-4.0); Total Protein 7.1 gm/dl (6.4-8.2)
[2020-12-26] MEDS ORDERED: POTASSIUM CHLORIDE CRTAB 20 MEQ TABCR PO STA (16:05)
--- NOTE | 2020-12-26 16:21 | Hospitalist Progress Note ---
Date of Service December 26, 2020 Assessment & Plan (1) Acute respiratory failure with hypoxia: (2) Pneumonia due to COVID-19 virus: Plan: This is a 24yo M with a PMH of no known past medical history who presents with worsening shortness of breath and hypoxia due to covid 19 pneumonia. Patient first developed symptoms 10 days ago and testing positive for covid 19 on 12/13 Did not receive the Covid 19 vaccine CXR showed patchy airspace opacities within the left lower lung zone. This likely represents a viral pneumonia Hypoxia on admission with oxygen level 85% on room air that improved to 94% on 4 L nasal cannula ESR 19, CRP 0.81on admission CXR with patchy airspace opacities within the left lower lung zone. This likely represents a viral pneumonia Continue IV dexamethasone 6 mg daily and remdesivir We will continue monitor liver enzymes while on IV remdesivir inflammatory markers increase with C-reactive protein from 0.72 1.5, ferritin from 540 to 568 Lasix 20 mg x 1 IV given yesterday and pt diuresis well Continue to wean off oxygen supplement We will consider to give an additional 20 mg Lasix today Continue guaifenesin and incentive spirometry Patient was advised to continue with proning Patient was weaned off oxygen supplement Currently saturating above 90% on room air two-step done today and pt did not require any oxygen supplement Continue monitor closely Transaminitis Possible related to the acute illness AST 72 and ALT 80 LFT continue trending down with AST 58 to 41and ALT82 today Pt was advised to avoid any hepatotoxic agents such as Alcohol Check LFT in 1 week Hypokalemia K 3.4 today K replaced Pt was advised to increase potassium supplement in diet Morbid obesity BMI 46.1 Counseling on weight loss with diet and exercise DVT prophylaxis will do Lovenox Full code Disposition Discharge home today Admission and Anticipated Discharge Date Admission Date: December 20, 2020 Subjective Patient was seen and examined for follow-up of shortness of breath due to COVID- 19 pneumonia Sitting in chair with no acute respiratory distress Currently saturating on room air He had a 2 step done today that did not require any oxygen supplement Denies any chest pain, palpitation, dizziness, and fever. Review of Systems Review of Systems: All systems reviewed & are unremarkable except as noted in Subjective Physical Exam Physical Exam: General- No acute distress, obese Head- atraumatic Eyes- PERRL, EOMI, ENT- oropharynx clear Neck- supple, no JVD Lungs- +diminished breath sounds Heart- regular rhythm; no murmur Abdomen- normal bowel sounds, soft, nontender Extremities- no calf tenderness Neuro- alert, oriented x 3; PERRL, EOMI; no facial palsy; no dysarthria Skin- warm & dry Results & Data Results & Data ([facility]) Vital Signs (Past 12 Hours) Vital Signs Temp Pulse Pulse Pulse Pulse Resp Resp 12/26/20 15:03 36.7 C 71 20 12/26/20 11:13 36.6 C 70 23 12/26/20 10:31 94 H 86 81 18 12/26/20 07:19 36.8 C 73 22 Resp Resp BP Pulse Ox Pulse Ox Pulse Ox Pulse Ox 12/26/20 15:03 127/76 93 12/26/20 11:13 112/68 94 12/26/20 10:31 18 16 91 93 94 12/26/20 07:19 115/73 91
--- NOTE | 2020-12-26 16:30 | Discharge Summary ---
Date of Service December 26, 2020 Admission HPI Per Admitting Provider This is a 24yo M with a PMH of no known past medical history who presents with difficulty breathing in the setting of covid 19 infection. Patient first developed symptoms 10 days ago. Stepdaughter was diagnosed with covid a few weeks ago. Patient first developed fever and chills followed by cough, pleuritic chest pain and difficulty breathing significantly worsened over the past 2 days. purchased pulse ox for patient to use at home and was found to have oxygen saturation of 85%. Came to the ED for further evaluation. Currently saturating at 94% on 4 L nasal cannula. Denies any current fever, chills, lightheadedness, chest pain, wheezing, nausea, vomiting, abdominal pain, dysuria, diarrhea constipation. Still has ability to taste and smell. Denies any change to appetite. Not taking any home medications. Did not receive COVID-19 vaccination. Admission Exam Per Admitting Provider Mild respiratory distress required oxygen supplement Diminished BS Principal Diagnosis (1) Acute respiratory failure with hypoxia: (2) Pneumonia due to COVID-19 virus: (3) Transaminitis Discharge Exam General- No acute distress, obese Head- atraumatic Eyes- PERRL, EOMI, ENT- oropharynx clear Neck- supple, no JVD Lungs- +diminished breath sounds Heart- regular rhythm; no murmur Abdomen- normal bowel sounds, soft, nontender Extremities- no calf tenderness Neuro- alert, oriented x 3; PERRL, EOMI; no facial palsy; no dysarthria Skin- warm & dry Discharge Data Allergies Allergy/AdvReac Type Severity Reaction Status Date / Time No Known Allergies Allergy Unverified 12/20/20 16:22 Consultations 12/20/20 18:08 ED Decision to Admit Stat Ordered Studies XR chest 1V portable HISTORY: Shortness of breath. Covid positive. COMPARISON: None. FINDINGS: No pneumothorax. No pleural effusions. There are low lung volumes. The cardiac silhouette is mildly enlarged. There are patchy airspace opacities within the left lower lung zone. IMPRESSION: 1. Patchy airspace opacities within the left lower lung zone. This likely represents a viral pneumonia. 2. Mild enlargement of the cardiac silhouette. This could be accentuated by the low lung volumes. ACT 112: Negative or not required by law. Electronically signed by: Mark Naranjo M.D. 12/20/2020 3:34 PM Dictated:12/20/20 1533 Transcribed: 12/20/20 1533 Hospital Course (1) Acute respiratory failure with hypoxia: (2) Pneumonia due to COVID-19 virus: This is a 24yo M with a PMH of no known past medical history who presents with worsening shortness of breath and hypoxia due to covid 19 pneumonia. Patient first developed symptoms 10 days ago and testing positive for covid 19 on 12/13 Did not receive the Covid 19 vaccine CXR showed patchy airspace opacities within the left lower lung zone. This likely represents a viral pneumonia Hypoxia on admission with oxygen level 85% on room air that improved to 94% on 4 L nasal cannula ESR 19, CRP 0.81on admission CXR with patchy airspace opacities within the left lower lung zone. This likely represents a viral pneumonia Continue IV dexamethasone 6 mg daily and remdesivir We will continue monitor liver enzymes while on IV remdesivir inflammatory markers increase with C-reactive protein from 0.72 1.5, ferritin from 540 to 568 Lasix 20 mg x 1 IV given yesterday and pt diuresis well Continue to wean off oxygen supplement We will consider to give an additional 20 mg Lasix today Continue guaifenesin and incentive spirometry Patient was advised to continue with proning Patient was weaned off oxygen supplement Currently saturating above 90% on room air two-step done today and pt did not require any oxygen supplement Continue monitor closely Transaminitis Possible related to the acute illness AST 72 and ALT 80 LFT continue trending down with AST 58 to 41and ALT82 today Pt was advised to avoid any hepatotoxic agents such as Alcohol Check LFT in 1 week Hypokalemia K 3.4 today K replaced Pt was advised to increase potassium supplement in diet Morbid obesity BMI 46.1 Counseling on weight loss with diet and exercise DVT prophylaxis will do Lovenox Full code Disposition Discharge home today Total Time Total Time Spent Total Time Spent (In Minutes): 35 minutes Discharge Plan Discharge Items Patient Disposition: Home - Self-Care Reason For Visit: COVID PNA, HYPOXIA Discharge Diagnosis: (1) Acute respiratory failure with hypoxia: (2) Pneumonia due to COVID-19 virus: (3) Transaminitis Activity: Resume your previous activity Non-emergency contact: Primary Care Provider Call non-emergency contact if: your symptoms worsen Follow-up/Referrals: Chau Garcia MD [Outside Practitioners] - (Date & Time 12/30/2020 12:00 PM Provider Chau Garcia MD Department [facility] [place] PLEASE NOTE THAT THIS IS A TELEHEALTH APPOINTMENT. PLEASE FOLLOW THE INSTRUCTIONS PROVIDED IN YOUR EMAIL. IF YOU HAVE ANY QUESTIONS REGARDING THIS APPOINTMENT, PLEASE CALL ) Diet: Regular Addtl Attending Provider Instructions: Follow up with your primary care provider 12/30/2020 12:00 PM [facility] [address] PLEASE NOTE THAT THIS IS A TELEHEALTH APPOINTMENT. PLEASE FOLLOW THE INSTRUCTIONS PROVIDED IN YOUR EMAIL. IF YOU HAVE ANY QUESTIONS REGARDING THIS APPOINTMENT, PLEASE CALL Increase potassium intake in your diet Your liver marker is mildly elevated. Check LTF in 1 week to monitor your liver enzymes ( Your physician will order it) Please avoid any agents that can cause liver failure such as alcohol Seek medical attention if your symptoms worsening or develop any shortness of breath Pending Studies at Discharge: No Stand-Alone Forms: My [facility], Smoking Cessation Medications and DC Order Prescriptions: No Action No Known Home Medications RF: 0 Discharge Orders: Discharge Order (Routine); Ordered 12/26/20 Ordered By: Aryan Voss/Other Patient Handouts: 5 Steps for Eating Healthier Admission Data Admit Date/Time: 12/20/20 18:45 Attending Provider: Aryan Velez Admit Provider: Bentley Jorgensen Primary Care Provider: PCP,NO Other Providers: Bentley Jorgensen Other Interventions: Discharge Summary Assessment (RN) Last Done: 12/26/20 16:34
== END 2020-12-26 15:30 | disposition home or self-care (01) | DRG 177 ==
LOC: ED 12:32 → 2S 18:45 → SUATTDRO 18:45 → 2S 22:51
DX: E87.6 Hypokalemia; Z87.891 Personal history of nicotine dependence; Z68.42 Body mass index [BMI] 45.0-49.9, adult; E66.01 Morbid (severe) obesity due to excess calories; R74.01 Elevation of levels of liver transaminase levels; J96.01 Acute respiratory failure with hypoxia; E87.1 Hypo-osmolality and hyponatremia; J12.82 Pneumonia due to coronavirus disease 2019; K76.0 Fatty (change of) liver, not elsewhere classified; U07.1 COVID-19